=== PATIENT | female | born 1970 | race African-American/Black ===

== ENCOUNTER 2024-12-19 10:55 | Emergency (ER) | payer OTHER ==
[2024-12-19 11:02] VITALS: PULSE 80
--- NOTE | 2024-12-19 11:22 | ED ---
Fall HPI - General Source: patient, EMS Mode of arrival: EMS <Jose Carrillo - Last Filed: 12/19/24 13:34> <Arthur Sanabria - Last Filed: 12/19/24 21:17> - General Chief Complaint: Fall Stated Complaint: fall - History of Present Illness Initial Comments: Patient is a 54-year-old female with no medical problems presents to the ER after a fall that happened about an hour ago. Patient said she was walking outside and accidentally tripped and had a ground-level fall. She did not hit her head. Denies any loss consciousness or passing out. Denies any prodromal symptoms such as chest pain, palpitations, shortness of breath prior to the fall. Patient did land on her right elbow when she fell and currently endorses mild tenderness in the right elbow region. The right elbow looks slightly swollen no discoloration or erythema. Patient is concerned about a possible dislocation/fracture. Denies other acute complaints at this time. No fever, chills, nausea, vomiting, chest pain, shortness of breath, pain, diarrhea, constipation. (Jose Carrillo) - Related Data Previous Rx's Medication Instructions Recorded Ibuprofen [Motrin] 800 mg PO Q8H 7 Days #21 tab 12/19/24 Allergies Allergy/AdvReac Type Severity Reaction Status Date / Time promethazine [From Phenergan] AdvReac Anxiety Verified 12/19/24 13:00 Review of Systems ROS Other: All systems not noted in ROS Statement are negative. Constitutional: Denies: fever, chills ENT: Denies: throat pain Respiratory: Denies: cough, dyspnea Cardiovascular: Denies: chest pain, palpitations Gastrointestinal: Denies: abdominal pain, nausea, vomiting, diarrhea, constipation Genitourinary: Denies: urgency, dysuria, frequency Musculoskeletal: Reports: arthralgia Skin: Denies: rash, lesions Neurological: Denies: headache <Jose Carrillo - Last Filed: 12/19/24 13:34> ROS Other: All systems not noted in ROS Statement are negative. <Arthur Sanabria - Last Filed: 12/19/24 21:17> ROS Statement: Those systems with pertinent positive or pertinent negative responses have been documented in the HPI. Past Medical History Past Medical History: No Reported History Past Surgical History: No Surgical Hx Reported Smoking Status: Former smoker Past Alcohol Use History: Occasional Past Drug Use History: None Reported <Jose Carrillo - Last Filed: 12/19/24 13:34> General Exam <Jose Carrillo - Last Filed: 12/19/24 13:34> - General Exam Comments Initial Comments: GENERAL: This is a 54-year-old in no apparent distress at the time of examination. Pleasant and cooperative. HEENT: Head is atraumatic, normocephalic. Pupils are equal, round, and reactive to light. Sclerae anicteric. Conjunctivae are clear. RESPIRATORY: Clear to auscultation. No wheezes, rales, or rhonchi. No use of accessory muscles. Patient maintaining oxygen saturation greater than 92%. CARDIOVASCULAR: Regular rate and rhythm. S1 and S2 noted. No systolic or diastolic murmur auscultated. No JVD noted. No S3 or S4 noted. GASTROINTESTINAL: No distention noted. Abdomen soft and round. Normal active bowel sounds auscultated x 4 quadrants. No pain or tenderness noted upon palpation. INTEGUMENTARY: No cyanosis. No jaundice. No rashes noted. No cellulitis noted. EXTREMITIES: No signs of swelling, discoloration, erythema of the right elbow compared to the left. Right forearm slightly limited with pronation and supination. NEUROLOGIC: Cranial nerves II-XII intact. PSYCHIATRIC: Awake, alert, and oriented X 3. Appropriate affect. Intact judgement and insight. (Jose Carrillo) Course Vital Signs 12/19/24 12/19/24 10:56 13:46 Temperature 98.5 F 98.1 F Pulse Rate 80 80 Respiratory 18 16 Rate Blood Pressure 118/76 117/76 O2 Sat by Pulse 100 98 Oximetry Procedures - Orthopedic Splinting/Casting Injury #1 Side: right Upper Extremity Injury Location: elbow Upper Extremity Immobilizer: sling/shoulder immobilizer, sugar tong splint <Arthur Sanabria - Last Filed: 12/19/24 21:17> Medical Decision Making <Jose Carrillo - Last Filed: 12/19/24 13:34> <Arthur Sanabria - Last Filed: 12/19/24 21:17> - Medical Decision Making Was pt. sent in by a medical professional or institution (, PA, POT SANDER, urgent care, hospital, or detention...) When possible be specific @ -No Did you speak to anyone other than the patient for history (EMS, parent, family, police, friend...)? What history was obtained from this source @ -Friend Did you review nursing and triage notes (agree or disagree)? Why? @ -I reviewed and agree with nursing and triage notes Were old charts reviewed (outside hosp., previous admission, EMS record, old EKG, old radiological studies, urgent care reports/EKG's, detention records)? Report findings @ -No old charts were reviewed Differential Diagnosis? @ -Right forearm dislocation, fracture of radial head EKG interpreted by me (3pts min.). @ -As above X-rays interpreted by me (1pt min.). @ -Right elbow x-ray showed acute nondisplaced fracture of the radial head. No dislocation. CT interpreted by me (1pt min.). @ -None done U/S interpreted by me (1pt. min.). @ -None done What testing was considered but not performed or refused? (CT, X-rays, U/S, labs)? Why? @ -None What meds were considered but not given or refused? Why? @ -None Did you discuss the management of the patient with other professionals (professionals i.e. [facility], PA, POT SANDER, lab, RT, psych nurse, social studies teacher, mumps developer, teacher, traffic officer, clinical case manager)? Give summary @ -Discussed with attending physician Was smoking cessation discussed for >3mins.? @ -No Was critical care preformed (if so, how long)? @ -No Were there social determinants of health that impacted care today? How? (Homelessness, low income, unemployed, alcoholism, drug addiction, transportation, low edu. Level, literacy, decrease access to med. care, long-term, rehab)? @ -No Was there de-escalation of care discussed even if they declined (Discuss DNR or withdrawal of care, Hospice)? DNR status @ -No What co-morbidities impacted this encounter? (DM, HTN, Smoking, COPD, CAD, Cancer, CVA, ARF, Chemo, Hep., AIDS, mental health diagnosis, sleep apnea, morbid obesity)? @ -None Was patient admitted / discharged? Hospital course, mention meds given and route, prescriptions, significant lab abnormalities, going to OR and other pertinent info. @ -Patient is a 54-year-old female with no medical problems presented to the ER after a ground-level fall that happened earlier today about an hour ago. Did not lose consciousness or pass out. X-ray of right elbow showed acute nondisplaced fracture of the radial head. No dislocation. X-ray of right forearm and hand showed acute nondisplaced fracture of the radial head. No dislocation. Patient's right arm was splinted and put in a arm sling. Patient will be discharged home. Recommended to follow-up with orthopedic surgery with Dr. Siddiqi in 1 to 2 days after discharge. Undiagnosed new problem with uncertain prognosis? @ -No Drug Therapy requiring intensive monitoring for toxicity (Heparin, Nitro, Insulin, Cardizem)? @ -No Were any procedures done? @ -No Diagnosis/symptom? @ -Fracture of the right radial head Acute, or Chronic, or Acute on Chronic? @ -Acute Uncomplicated (without systemic symptoms) or Complicated (systemic symptoms)? @ -Uncomplicated Side effects of treatment? @ -No Exacerbation, Progression, or Severe Exacerbation? @ -No Poses a threat to life or bodily function? How? (Chest pain, [place], [place], pneumonia, PE, COPD, DKA, ARF, appy, cholecystitis, CVA, Diverticulitis, Homicidal, Suicidal, threat to staff... and all critical care pts) @ -No (Jose Carrillo) I personally saw the patient and performed the critical portion of the service. I discussed the patient care with the resident. I directed management, care planning and final disposition of the patient. This includes, but not limited t o, review of all lab work, radiological studies, EKG's, consultations, vital signs, and nursing notes. EKG interpreted by me (3pts min.) @As above X-Rays interpreted by me (1 pt min.) @Elbow x-ray shows a radial head fracture. Forearm x-ray shows no obvious other fractures other than the nondisplaced radial head fracture CT interpreted by me ( 1pt min.) @None U/S interpreted by me (1 pt min.) @None Reviewed imaging with the resident and updated the patient. Given a sling following splinting. Neurovascular intact following the splinting procedure. Recommended follow-up with orthopedics and will be given discharge information. Also discharged home with pain medications. (Arthur Sanabria) Disposition Is patient prescribed a controlled substance at d/c from ED?: No Time of Disposition: 13:30 <Jose Carrillo - Last Filed: 12/19/24 13:34> <Arthur Snaabria - Last Filed: 12/19/24 21:17> Clinical Impression: Fracture of radial head, right, closed Narrative: Patient will be discharged home, recommended to follow-up with orthopedic surgery in 1 to 2 days after discharge. (Jose Carrillo) Disposition: HOME SELF-CARE Condition: Stable Additional Instructions: Every disease is a spectrum and a small chance still exists that a serious condition could develop, for this reason, please monitor yourself closely for new, changing or worsening symptoms, new confusion, changes in behavior, severe headache, changes in vision, numbness, weakness, chest pain, fever, inability to tolerate/keep down fluids or your medications, inability to follow up with outpatient providers as instructed and should you experience these symptoms or should you have any further concerns for your wellbeing please return to the ED or call 911 immediately. PLEASE call your primary care physician as soon as possible to arrange / discuss plan for followup appointment. Appointment in the next 1-3 days is strongly encouraged if possible. PLEASE let us know here before you leave if there is anything further we can do to be of any assistance. Take care and feel Better! Prescriptions: Ibuprofen [Motrin] 800 mg PO Q8H 7 Days #21 tab Referrals: [facility] [NON-STAFF] - 1-2 days (Contact a primary care office to become established with a provider. ) None,Stated [Primary Care Provider] - 1-2 days Gregg Siddiqi DO [Doctor of Osteopathic Medicine] - 1-2 days
--- NOTE | 2024-12-19 12:17 | XR ---
EXAMINATION TYPE: XR elbow complete RT DATE OF EXAM: 12/19/2024 12:08 PM INDICATION: Patient age:Female; 54 years old; Reason for study: possible dislocation of right elbow; PHH. pain COMPARISON: None TECHNIQUE: The right elbow was examined in AP, lateral, and oblique projections. FINDINGS: Acute nondisplaced fracture of the radial head. No dislocation. Small joint effusion. No so ft tissue swelling. IMPRESSION: Acute nondisplaced fracture of the radial head. No dislocation. [facility], , 12/19/2024 12:15 PM
[2024-12-19] MEDS: ACETAMINOPHEN TAB 500 MG TAB PO STA (12:47)
--- NOTE | 2024-12-19 13:11 | XR ---
EXAMINATION TYPE: XR forearm RT DATE OF EXAM: 12/19/2024 1:03 PM INDICATION: Patient age:Female; 54 years old; Reason for study: dislocation of right elbow; PHH. pain COMPARISON: Right elbow radiograph 12/19/2024 TECHNIQUE: The right forearm was examined in AP and lateral projections. FINDINGS/IMPRESSION: Acute nondisplaced fracture of the radial head and elbow joint effusion are bet ter appreciated on earlier elbow radiograph. No dislocation. No soft tissue swelling. The wrist appea rs intact. [facility], , 12/19/2024 1:08 PM
[2024-12-19] MEDS: ACET/COD 300 MG/30 MG STARTER PACK 6 TAB BTL PO STA (13:41)
[2024-12-19 13:48] VITALS: BP 117/76; RESP 16; TEMP 98.1
== END 2024-12-19 13:48 | disposition home or self-care (01) ==
LOC: EC 10:55
DX: S52.121A Displaced fracture of head of right radius, initial encounter for closed fracture (principal); Z87.891 Personal history of nicotine dependence; Z88.8 Allergy status to other drugs, medicaments and biological substances; W01.0XXA Fall on same level from slipping, tripping and stumbling without subsequent striking against object, initial encounter; Y93.01 Activity, walking, marching and hiking
CPT/HCPCS: 29105; 99283